=== PATIENT | male | born 1980 | race Caucasian/White ===

== ENCOUNTER 2021-05-24 13:53 | Emergency (ER) | payer SELFPAY ==
[~2021-05-24] VITALS: Ht 182.9 cm; Wt 108.9 kg
[2021-05-24 15:36] LABS: HEMOGLOBIN 16.8 gm/dl (14.0-17.5); RED BLOOD COUNT 5.1 M/UL (4.20-5.50); WHITE BLOOD COUNT 5.9 K/UL (4.5-11.0)
[2021-05-24 15:54] LABS: BUN/CREATININE RATIO 11 (0-10)
[2021-05-24] MEDS ORDERED: AZITHROMYCIN250 MG PO (17:52)
[2021-05-24] MEDS ORDERED: ZOFRAN ODT 4 MG4 MG PO (17:52)
[2021-05-24] MEDS ORDERED: HYDROXYCHLOROQ200 MG PO (17:52)
== END 2021-05-24 20:05 | disposition home or self-care (01) ==
LOC: ER1 13:53
PROVIDERS: Family Medicine
DX: Z23 Encounter for immunization (principal); U07.1 COVID-19; E87.6 Hypokalemia; Z88.1 Allergy status to other antibiotic agents; Z88.8 Allergy status to other drugs, medicaments and biological substances
CPT/HCPCS: 0240U; 71045; 80053; 81001; 82550; 82553; 83735; 83874; 84484; 85025; 93005; 96374; 99285; J2405; M0243